=== PATIENT | female | born 1980 | race Hispanic/Latino ===

== ENCOUNTER → 2016-07-24 | Outpatient (CLI) | payer MEDICAID, OTHER | END | disposition home or self-care (01) | LOC: LAB 09:08 | PROVIDERS: ATTEND Obstetrics & Gynecology | DX: O09.213 Supervision of pregnancy with history of pre-term labor, third trimester (principal); Z3A.38 38 weeks gestation of pregnancy ==

== ENCOUNTER 2017-04-06 17:05 | Emergency (ER) | payer OTHER, SELFPAY ==
--- NOTE | 2017-04-06 17:45 | ED.PDOC ---
History of Present Illness - General Time Seen by Provider: 04/06/17 17:37 Source: patient Exam Limitations: no limitations - History of Present Illness Timing/Duration: intermittent - STARTED THIS AM Severity: mild Improving Factors: nothing Worsening Factors: nothing Associated Symptoms: chest pain, diaphoresis, shortness of breath, other - ANXIETY Allergies/Adverse Reactions: Allergies CI Pigment Blue 63 [From Cymbalta] Allergy (Intermediate, Verified 04/06/17 17: 24) Duloxetine [From Cymbalta] Allergy (Intermediate, Verified 04/06/17 17:24) Home Medications: Ambulatory Orders Azithromycin 250 mg PO DAILY #6 tab 04/06/17 diphenhydrAMINE HCL [Benadryl] 50 mg PO Q6HRS #20 cap 04/06/17 Review of Systems - Review of Systems Constitutional: Denies: chills, fever, malaise, weakness EENTM: Denies: nose pain, throat pain, mouth pain Respiratory: States: short of breath. Denies: cough, orthopnea, stridor, wheezing Cardiology: States: chest pain. Denies: edema, palpitations, syncope Gastrointestinal/Abdominal: States: nausea. Denies: abdominal pain, constipation, diarrhea, vomiting Genitourinary: Denies: dysuria, frequency Musculoskeletal: Denies: joint pain, joint swelling, muscle pain Neurological: Denies: anxiety, depressed, emotional problems, headache, numbness , paresthesia Endocrine: Denies: increased hunger, increased thirst, increased urine Hematologic/Lymphatic: Denies: blood clots, easy bleeding, easy bruising All other Systems: Reviewed and Negative Family Medical History - Family History Grandparents Family History: Unknown Physical Exam - Physical Exam General Appearance: Alert, Anxious, Well Developed, Well Groomed, Well Hydrated , Well Nourished Eye Exam: bilateral normal Ears, Nose, Throat: normal ENT inspection, normal pharynx Neck: non-tender, full range of motion, supple Respiratory: lungs clear, normal breath sounds, no respiratory distress, no accessory muscle use Gastrointestinal/Abdominal: normal bowel sounds, non tender, soft, no organomegaly, no pulsatile mass Extremity: normal range of motion, non-tender, normal inspection 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 HAS SIMILAR WHEN ANEMIC WHEN MINUS THE LEFT ARM PARESTHESIA. NOT HAVING IT CURRENTLY. NO FAMILY HX OF EARLY CARDIAC . WOULD CONSIDER ACS, PE, PTX, ARRYTHMIA, DISSECTION/ANEURYSM, ANXIETY REACTION, ELECTROLYTE DERANGEMENT. 04/06/17 18:44 TROP, EKG, D-DIMER ARE ALL UNREMARKABLE. WILL COVER FOR BRONCHITIS VRS ANXIETY REACTION. - Results/Orders Results/Orders: 04/06/17 17:30 EKG STAT Laboratory Results - last 24 hr 04/06/17 04/06/17 04/06/17 18:00 18:00 18:00 WBC 5.4 RBC 4.63 Hgb 13.7 Hct 40.6 MCV 87.7 MCH 29.7 MCHC 33.8 RDW 13.2 Plt Count 156 MPV 11.2 H Absolute Neuts (auto) 3.30 Absolute Lymphs (auto) 1.50 Absolute Monos (auto) 0.40 Absolute Eos (auto) 0.10 Absolute Basos (auto) 0.10 Neutrophils % 61.5 Lymphocytes % 28.5 Monocytes % 7.0 Eosinophils % 2.1 Basophils % 0.9 D-Dimer, Quantitative Sodium 142 Potassium 3.6 Chloride 106 Carbon Dioxide 29 Anion Gap 10.6 L BUN 11 Creatinine 0.65 BUN/Creatinine Ratio 16.9 Random Glucose 72 Serum Osmolality 281.0 Calcium 9.0 Total Bilirubin 0.6 AST 17 ALT 11 Alkaline Phosphatase 92 Creatine Kinase 123 CK-MB (CK-2) 1.4 CK-MB (CK-2) % Not Reportable Troponin I < 0.02 Serum Total Protein 7.4 Albumin 3.9 Globulin 3.5 Albumin/Globulin Ratio 1.1 04/06/17 18:00 WBC RBC Hgb Hct MCV MCH MCHC RDW Plt Count MPV Absolute Neuts (auto) Absolute Lymphs (auto) Absolute Monos (auto) Absolute Eos (auto) Absolute Basos (auto) Neutrophils % Lymphocytes % Monocytes % Eosinophils % Basophils % D-Dimer, Quantitative < 230 Sodium Potassium Chloride Carbon Dioxide Anion Gap BUN Creatinine BUN/Creatinine Ratio Random Glucose Serum Osmolality Calcium Total Bilirubin AST ALT Alkaline Phosphatase Creatine Kinase CK-MB (CK-2) CK-MB (CK-2) % Troponin I Serum Total Protein Albumin Globulin Albumin/Globulin Ratio - EKG/XRAY/CT EKG: Sinus - SINUS RYTHM AT 74. AXIS IS NORMAL. INTERVALS ARE NORMAL. NO ACUTE ST SEGMENT ABNORMALITIES. IMPRESSION: NSR Departure - Departure Clinical Impression: Paresthesia Chest pain Qualifiers: Chest pain type: precordial pain Qualified Code(s): R07.2 - Precordial pain Dyspnea Qualifiers: Dyspnea type: shortness of breath Qualified Code(s): R06.02 - Shortness of breath; R06.00 - Dyspnea, unspecified; R06.01 - Orthopnea Time of Disposition: 18:54 Disposition: Discharge to Home or Self Care Condition: Fair Instructions: DI for Chest Pain, DI for Shortness of Breath Diet: resume usual diet Activity: increase activity as tolerated Referrals: Adelfo Mckee MD [Primary Care Provider] - 1-2 Weeks Prescriptions: diphenhydrAMINE HCL [Benadryl] 50 mg PO Q6HRS #20 cap Azithromycin 250 mg PO DAILY #6 tab Home Medications: Ambulatory Orders Azithromycin 250 mg PO DAILY #6 tab 04/06/17 diphenhydrAMINE HCL [Benadryl] 50 mg PO Q6HRS #20 cap 04/06/17 Additional Instructions: RETURN TO THE ED FOR ANY NEW OR CHANGING SYMPTOMS. NO STRENUOUS ACTIVITY UNTIL CLEARED BY PRIMARY CARE
--- NOTE | 2017-04-06 18:22 | RAD ---
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 No pleural effusion or pneumothorax. Cardiac silhouette is normal in size. Impression: No acute pulmonary process. Electronically signed by: Fish Carbajal MD 04/06/2017 6:22 PM CENTRAL PROCESSING TECHNICIAN
[2017-04-06] MEDS ORDERED: LORazepam 0.5 MG TAB PO ONE (18:33)
[2017-04-06 18:41] VITALS: TEMP 98.2
[2017-04-06 19:03] VITALS: BP 100/68
[2017-04-06 19:35] VITALS: O2SAT 96
== END 2017-04-06 19:36 | disposition home or self-care (01) ==
LOC: ER 17:05
DX: R07.2 Precordial pain (principal); R20.0 Anesthesia of skin; R06.02 Shortness of breath

== ENCOUNTER 2019-01-28 19:52 | Emergency (ER) | payer SELFPAY ==
--- NOTE | 2019-01-28 20:42 | ED.PDOC ---
History of Present Illness - General Chief Complaint: General Stated Complaint: Feeling anxious, shaky, dizzy Time Seen by Provider: 01/28/19 20:37 Additional Information: The patient is a 38-year-old female who presents to the ED with chief complaint of anxiety type symptoms. Patient indicates she feels jittery and slightly short of breath and began to feel palpitations this evening. 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 Patient indicates she has a history of anxiety and wonders if her symptoms are consistent with that. She indicates she does have some stress in her life presently and that she is alone in [place] with no family except for a friend who is with her who is "like family". Patient is feeling better in the ED and believes her symptoms have nearly resolved. Patient specifically denies chest pain. Patient has no other concerns presently. - History of Present Illness Allergies/Adverse Reactions: Allergies CI Pigment Blue 63 [From Cymbalta] Allergy (Intermediate, Verified 04/06/17 17:24) Duloxetine [From Cymbalta] Allergy (Intermediate, Verified 04/06/17 17:24) Olanzapine [From Zyprexa] Allergy (Verified 01/28/19 20:08) Home Medications: Ambulatory Orders hydrOXYzine HCl [Vistaril] 50 mg IM Q6H PRN #20 vial 01/28/19 Review of Systems - Review of Systems Constitutional: States: no symptoms reported. Denies: chills, fever EENTM: Denies: nose congestion Respiratory: States: short of breath. Denies: cough Cardiology: States: palpitations. Denies: chest pain Gastrointestinal/Abdominal: States: no symptoms reported, nausea. Denies: diarrhea, vomiting Genitourinary: Denies: dysuria Musculoskeletal: Denies: muscle pain Neurological: States: anxiety Endocrine: States: no symptoms reported Hematologic/Lymphatic: States: no symptoms reported All other Systems: Reviewed and Negative Past Medical History (General) - Patient Medical History Hx Stroke: No Hx Asthma: No Hx Cardiac Disorders: No Hx Congestive Heart Failure: No Hx Diabetes: No Hx Cancer: No Hx Hepatitis C: No Surgical History: cholecystectomy - Vaccination History Hx Tetanus, Diphtheria Vaccination: Yes Hx Influenza Vaccination: No Hx Pneumococcal Vaccination: No - Social History Hx Tobacco Use: No Hx Chewing Tobacco Use: No Hx Alcohol Use: No Hx Substance Use: No Hx Substance Use Treatment: No Hx Depression: No Hx Physical Abuse: No Hx Emotional Abuse: No Hx Suspected Abuse: No - Female History Patient is a Female of Child Bearing Age (10 -59 yrs old): Yes Patient : No Family Medical History - Family History Grandparents Family History: Unknown Physical Exam - Physical Exam General Appearance: Alert, Comfortable, No apparent distress, Obese Eye Exam: bilateral normal Ears, Nose, Throat: normal ENT inspection, normal pharynx Neck: non-tender, full range of motion, supple Respiratory: chest non-tender, lungs clear, normal breath sounds, no respiratory distress, no accessory muscle use Cardiovascular/Chest: normal peripheral pulses, regular rate, rhythm, no edema, no gallop, no JVD, no murmur Gastrointestinal/Abdominal: normal bowel sounds, non tender, soft, no organomegaly, no pulsatile mass Back Exam: normal inspection, no CVA tenderness Extremity: normal range of motion, no pedal edema 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 Her workup is unremarkable and clinically I suspect mild anxiety attack. Will DC with prescription for Vistaril patient follow-up with her PCP. Vital signs stable, patient NAD and looks clinically well, and I believe is safe for discharge with outpatient follow-up. Follow-up instructions, discharge instructions and return to ED precautions discussed with patient. Patient voices understanding and willingness to comply with instructions. All laboratory and radiographic results have been discussed with the patient, and all questions answered. Patient is happy with plan. - Results/Orders Results/Orders: EKG read: NSR, rate 66, nl axis, nl QRS, nl ST segments, nl T waves. Negative STEMI. EKG read by Wily Duran MD. Departure - Departure Clinical Impression: Anxiety reaction Time of Disposition: 22:29 Disposition: Discharge to Home or Self Care Condition: Good Departure Forms: ED Discharge - Pt. Copy, Patient Portal Self Enrollment Instructions: Anxiety, Adult (DC) Referrals: Adelfo Mckee MD [Primary Care Provider] - 1-5 Days Prescriptions: hydrOXYzine HCl [Vistaril] 50 mg IM Q6H PRN #20 vial PRN Reason: Anxiety Home Medications: Ambulatory Orders hydrOXYzine HCl [Vistaril] 50 mg IM Q6H PRN #20 vial 01/28/19
[2019-01-28 22:41] VITALS: BP 97/60; TEMP 97.9; O2SAT 98
== END 2019-01-28 22:41 | disposition home or self-care (01) ==
LOC: ER 19:52
DX: F41.9 Anxiety disorder, unspecified (principal); Z88.8 Allergy status to other drugs, medicaments and biological substances

== ENCOUNTER 2019-02-12 11:19 | Emergency (ER) | payer SELFPAY ==
[2019-02-12 11:29] VITALS: O2SAT 100
--- NOTE | 2019-02-12 11:39 | ED.PDOC ---
History of Present Illness - General Chief Complaint: Cardiovascular Problem Stated Complaint: Heart palpitations Time Seen by Provider: 02/12/19 11:25 Source: patient, RN notes reviewed, Vital Signs reviewed Exam Limitations: no limitations - History of Present Illness Initial Comments: Pt is a 38 yo female with no PMH who presents to ED for intermitient palpitations since January 28. States the episodes feel like heart heart is beating fast, chest tightness, occasionally feels SOB. Nothing improves or worsens her symptoms. LMP was 2 days ago. Was seen in clinic for this yesterday, but does not have results of blood work back yet. Denies fever, cough, NVD or recent illness. Allergies/Adverse Reactions: Allergies CI Pigment Blue 63 [From Cymbalta] Allergy (Intermediate, Verified 02/12/19 11:32) Duloxetine [From Cymbalta] Allergy (Intermediate, Verified 02/12/19 11:32) Olanzapine [From Zyprexa] Allergy (Verified 02/12/19 11:32) Home Medications: Ambulatory Orders NK 02/12/19 Review of Systems - Review of Systems Constitutional: Denies: chills, fever, weakness EENTM: Denies: blurred vision, ear pain, nose congestion, throat pain Respiratory: States: short of breath. Denies: cough, wheezing Cardiology: States: chest pain, palpitations. Denies: edema, syncope Gastrointestinal/Abdominal: Denies: abdominal pain, diarrhea, nausea, vomiting Genitourinary: Denies: dysuria, frequency, hematuria Musculoskeletal: Denies: back pain, muscle pain, neck pain Skin: States: no symptoms reported Neurological: States: anxiety. Denies: headache, paresthesia, weakness Endocrine: States: no symptoms reported Hematologic/Lymphatic: States: no symptoms reported All other Systems: Reviewed and Negative Past Medical History (General) - Patient Medical History Hx Stroke: No Hx Asthma: No Hx Cardiac Disorders: No Hx Congestive Heart Failure: No Hx Diabetes: No Hx Cancer: No Hx Hepatitis C: No Hx MRSA: No Surgical History: cholecystectomy, other - Vaccination History Hx Tetanus, Diphtheria Vaccination: Yes Hx Influenza Vaccination: No Hx Pneumococcal Vaccination: No - Social History Hx Tobacco Use: No Hx Chewing Tobacco Use: No Hx Alcohol Use: No Hx Substance Use: No Hx Substance Use Treatment: No Hx Depression: No Hx Physical Abuse: No Hx Emotional Abuse: No Hx Suspected Abuse: No - Female History Patient is a Female of Child Bearing Age (10 -59 yrs old): Yes Patient : No Family Medical History - Family History Grandparents Family History: Unknown Physical Exam - Physical Exam General Appearance: Alert, Anxious, No apparent distress Eyes, Ears, Nose, Throat Exam: TMs normal, pharynx normal Neck: non-tender, full range of motion, supple Respiratory: chest non-tender, lungs clear, normal breath sounds, no respiratory distress Cardiovascular/Chest: normal peripheral pulses, regular rate, rhythm, no edema, no JVD Gastrointestinal/Abdominal: non tender, soft, no pulsatile mass Extremity: normal range of motion, non-tender, normal inspection, no pedal edema, no calf tenderness 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 EKG, troponin negative. D dimer elevated and CTA chest peformed to r/o PE and is negative. TSH normal. VS reassuring. Pt has appointment scheduled with PCP for follow up and feels comfortable going home. SRP given. - Results/Orders Results/Orders: TECHNIQUE: CT pulmonary angiography is performed with thin-section multi detector technique during rapid bolus administration of routine adult dose of nonionic iodinated IV contrast media. Multiplanar reformatted images are evaluated. Oblique MIP images are obtained and reviewed. FINDINGS: Normal enhancement of pulmonary arteries. Normal enhancement of cardiac chambers. Heart is prominent in size. Correlate with echocardiographic findings. Early enhancement of the aorta is negative for aneurysm or dissection. Lung window images are negative for infiltrate. No worrisome mass or nodule. In the upper abdomen, upper abdominal viscera are unremarkable. No chest wall mass or rib fracture. No axillary or lower cervical adenopathy. Coronal and sagittal reformatted MIP images confirm normal pulmonary arterial enhancement. IMPRESSION: Negative for evidence of pulmonary embolic disease. 02/12/19 11:30 EKG .ONCE Laboratory Results - last 24 hr 02/12/19 02/12/19 02/12/19 11:37 11:37 11:37 WBC 6.5 RBC 4.67 Hgb 13.7 Hct 41.3 MCV 88.4 MCH 29.3 MCHC 33.2 RDW 13.6 Plt Count 139 MPV 11.3 H Absolute Neuts (auto) 4.70 Absolute Lymphs (auto) 1.30 Absolute Monos (auto) 0.40 Absolute Eos (auto) 0.10 Absolute Basos (auto) 0.00 Neutrophils % 72.4 Lymphocytes % 20.1 Monocytes % 5.5 Eosinophils % 1.4 Basophils % 0.6 D-Dimer, Quantitative Sodium 136 Potassium 3.8 Chloride 104 Carbon Dioxide 24 Anion Gap 11.8 L BUN 16 Creatinine 0.65 BUN/Creatinine Ratio 24.6 H Random Glucose 96 Serum Osmolality 273.0 L Calcium 8.9 Total Bilirubin 0.3 AST 22 ALT 16 Alkaline Phosphatase 77 Troponin I < 0.02 B-Natriuretic Peptide 16.1 Serum Total Protein 7.8 Albumin 4.0 Globulin 3.8 H Albumin/Globulin Ratio 1.1 TSH Serum HCG, Qual 02/12/19 02/12/19 02/12/19 11:37 11:37 11:37 WBC RBC Hgb Hct MCV MCH MCHC RDW Plt Count MPV Absolute Neuts (auto) Absolute Lymphs (auto) Absolute Monos (auto) Absolute Eos (auto) Absolute Basos (auto) Neutrophils % Lymphocytes % Monocytes % Eosinophils % Basophils % D-Dimer, Quantitative 0.82 H* Sodium Potassium Chloride Carbon Dioxide Anion Gap BUN Creatinine BUN/Creatinine Ratio Random Glucose Serum Osmolality Calcium Total Bilirubin AST ALT Alkaline Phosphatase Troponin I B-Natriuretic Peptide Serum Total Protein Albumin Globulin Albumin/Globulin Ratio TSH 2.92 Serum HCG, Qual Negative - EKG/XRAY/CT EKG: Sinus - NSR, rate 72, normal intervals, no ST abnormality Departure - Departure Clinical Impression: Palpitations, Atypical chest pain Time of Disposition: 13:11 Disposition: Discharge to Home or Self Care Condition: Good Departure Forms: ED Discharge - Pt. Copy, Patient Portal Self Enrollment Instructions: Palpitations (DC) Diet: resume usual diet Activity: increase activity as tolerated Referrals: Adelfo Mckee MD [Primary Care Provider] - 1-2 Days Home Medications: Ambulatory Orders NK 02/12/19
--- NOTE | 2019-02-12 12:08 | RAD ---
Study: Single Frontal Radiograph of the Chest. Indication:palpitations Comparison: April 2017 Impression: Mild cardiomegaly without failure. Lungs clear. No acute osseous abnormality. Electronically signed by: Roberto Chaudhari MD 02/12/2019 12:07 PM [facility]
--- NOTE | 2019-02-12 13:07 | CT ---
EXAM DESCRIPTION: CTA Chest CLINICAL HISTORY: 38 years, Female, SOB, palpitations, +dimer. r/o PE COMPARISON: None TECHNIQUE: CT pulmonary angiography is performed with thin-section multi detector technique during rapid bolus administration of routine adult dose of nonionic iodinated IV contrast media. Multiplanar reformatted images are evaluated. Oblique MIP images are obtained and reviewed. FINDINGS: Normal enhancement of pulmonary arteries. Normal enhancement of cardiac chambers. Heart is prominent in size. Correlate with echocardiographic findings. Early enhancement of the aorta is negative for aneurysm or dissection. Lung window images are negative for infiltrate. No worrisome mass or nodule. In the upper abdomen, upper abdominal viscera are unremarkable. No chest wall mass or rib fracture. No axillary or lower cervical adenopathy. Coronal and sagittal reformatted MIP images confirm normal pulmonary arterial enhancement. IMPRESSION: Negative for evidence of pulmonary embolic disease. This exam was performed according to our departmental dose-optimization program, which includes automated exposure control, adjustment of the mA and/or kV according to patient size and/or use of iterative reconstruction technique. Total DLP equals 800.78 mGycm. Electronically signed by: Mikhail Cervantes MD 02/12/2019 1:05 PM [id number]
[2019-02-12 13:30] VITALS: BP 113/64; TEMP 97.6
== END 2019-02-12 13:30 | disposition home or self-care (01) ==
LOC: ER 11:19
DX: R00.2 Palpitations (principal); R07.89 Other chest pain; Z88.8 Allergy status to other drugs, medicaments and biological substances